=== PATIENT | female | born 1940 | race African-American/Black ===

== ENCOUNTER 2017-12-25 05:19 | Observation (INO) | payer OTHER, MEDICAID ==
[~2017-12-25] VITALS: Ht 162.6 cm; Wt 74.6 kg
[2017-12-25] MEDS ORDERED: SODIUM CHLORIDE 0.9% 500 ML IV ONE (06:13)
[2017-12-25 07:07] LABS: BASOPHILS % 0.8 % (0.0-2.0); EOSINOPHILS % 3.7 % (0.0-5.0); HEMATOCRIT. 37.7 % (36.0-48.0); HEMOGLOBIN. 12.4 g/dL (12.0-16.0); LYMPHOCYTES % 26.5 % (20.0-50.0); MEAN CORPUSCULAR HEMOGLOBIN 29.3 pg (28.0-32.0); MEAN CORPUSCULAR VOLUME 88.9 fL (81.0-99.0); MEAN PLATELET VOLUME 10.3 fl (7.4-10.4); MONOCYTES % 9.4 % (2.0-8.0); NEUTROPHILS % 59.6 % (40.0-76.0); PLATELET 179 x1000/uL (130-400); RED BLOOD CELL COUNT 4.24 mill/uL (4.2-5.4); RED CELL DISTRIBUTION WIDTH 16.4 % (11.6-14.6)
[2017-12-25 07:11] LABS: CHLORIDE 109 mEq/L (98-107)
[2017-12-25 07:13] LABS: PROTHROMBIN TIME 9.8 sec (9.1-11.1)
[2017-12-25 07:32] LABS: CLARITY URINE CLEAR (CLEAR); COLOR URINE YELLOW (YELLOW); KETONES URINE NEGATIVE (NEGATIVE); LEUKOCYTE ESTERASE URINE 1+ (NEGATIVE); NITRITE URINE POSITIVE (NEGATIVE); OCCULT BLOOD URINE NEGATIVE (NEGATIVE); PROTEIN URINE NEGATIVE (NEGATIVE); SPECIFIC GRAVITY URINE 1.016 (1.005-1.030); UROBILINOGEN URINE 0.2 E.U./dL (0.2-1.0)
[2017-12-25] MEDS ORDERED: HYDRALAZINE 20MG/ML VIAL IV ONE (09:15)
[2017-12-25] MEDS ORDERED: ASPIRIN 300MG SUPP PR ONE (10:15)
[2017-12-25] MEDS ORDERED: CEFTRIAXONE 1 G PREMIX 50 ML IV ONE (10:15)
[2017-12-25 12:00] VITALS: BP 176/78
[2017-12-25 14:00] VITALS: BP 176/78
[2017-12-25] MEDS ORDERED: HYDRALAZINE 20MG/ML VIAL IV PRN (15:44)
[2017-12-25] MEDS ORDERED: LEVOFLOXACIN 500MG TABLET PO SCH (15:46)
[2017-12-25 16:00] VITALS: BP 149/85
[2017-12-25] MEDS ORDERED: SODIUM CHLORIDE 0.45% 1,000 ML IV SCH (16:00)
[2017-12-25 16:47] VITALS: BP 149/85
[2017-12-25] MEDS ORDERED: PNEUMOCOCCAL 23-VAL P-SAC VAC 0.5 ML IM ONE (17:00)
== END 2017-12-25 18:32 ==
LOC: ER 05:19 → 6WST 10:16 → INTOOBSV 10:16 → SUPCPDRO 10:27 → ENRESERV 10:41
PROVIDERS: ADMIT Internal Medicine; ATTEND Internal Medicine
DX: R53.1 Weakness (principal); R55 Syncope and collapse; I63.9 Cerebral infarction, unspecified; G81.94 Hemiplegia, unspecified affecting left nondominant side; E11.9 Type 2 diabetes mellitus without complications; E86.0 Dehydration; E66.9 Obesity, unspecified; I10 Essential (primary) hypertension; N39.0 Urinary tract infection, site not specified; R00.1 Bradycardia, unspecified; F03.90 Unspecified dementia, unspecified severity, without behavioral disturbance, psychotic disturbance, mood disturbance, and anxiety; Z91.19 Patient's noncompliance with other medical treatment and regimen
CPT/HCPCS: 36415; 51702; 70450; 71045; 80053; 81003; 83880; 84484; 85025; 85610; 92610; 93005; 96361; 96365; 96375; 96376; 99285; G0378; J0360; J0696; J7030

== ENCOUNTER 2019-03-16 12:37 | Inpatient (IN) | payer MEDICARE, MEDICAID ==
[~2019-03-16] VITALS: Ht 160 cm; Wt 73.5 kg
[2019-03-16] MEDS ORDERED: LABETALOL 5MG/ML SYR 20 MG/4 ML SYRINGE IV ONE ×2 (16:15→19:45)
[2019-03-16 16:37] LABS: BASOPHILS % 0.6 % (0.0-2.0); EOSINOPHILS % 5.8 % (0.0-5.0); HEMATOCRIT. 38.5 % (36.0-48.0); HEMOGLOBIN. 12.8 g/dL (12.0-16.0); MEAN CORPUSCULAR HEMOGLOBIN 29.2 pg (28.0-32.0); MEAN CORPUSCULAR VOLUME 88.3 fL (81.0-99.0); MEAN PLATELET VOLUME 10.5 fl (7.4-10.4); MONOCYTES % 6.9 % (2.0-8.0); NEUTROPHILS % 56.7 % (40.0-76.0); PLATELET 171 x1000/uL (130-400); RED BLOOD CELL COUNT 4.37 mill/uL (4.2-5.4); RED CELL DISTRIBUTION WIDTH 16.2 % (11.6-14.6)
[2019-03-16 16:43] LABS: CHLORIDE 109 mEq/L (98-107)
[2019-03-16] MEDS ORDERED: CLOTRIMAZOLE 1% SOLUTION 10ML TOP ONE (19:15)
[2019-03-16] MEDS ORDERED: HYDRALAZINE 20MG/ML VIAL IV NR (21:30)
[2019-03-16] MEDS ORDERED: CLONIDINE 0.2MG TABLET PO SCH ×2 (23:15→23:30)
[2019-03-17] VITALS (84 sets, daily range): BP systolic 104–259; BP diastolic 61–140
[2019-03-17] MEDS ORDERED: NITROGLYCERIN 50MG PREMIX 250 ML IV SCH (01:00)
[2019-03-17] MEDS ORDERED: DEXTROSE 50% WATER 50ML SYRINGE IV PRN ×2 (03:00)
[2019-03-17] MEDS ORDERED: DEXT 5%/0.9% NACL 1,000 ML IV SCH (03:00)
[2019-03-17] MEDS ORDERED: NITROGLYCERIN 50MG PREMIX 250 ML IV PRN (03:00)
[2019-03-17 06:00] LABS: HEMATOCRIT 38.4 % (36.0-48.0); HEMOGLOBIN 12.8 g/dL (12.0-16.0); MEAN CORPUSCULAR HEMOGLOBIN 29.3 pg (28.0-32.0); MEAN CORPUSCULAR VOLUME 88.1 fL (81.0-99.0); PLATELET 186 x1000/uL (130-400); RED BLOOD CELL COUNT 4.36 mill/uL (4.2-5.4)
[2019-03-17] MEDS: BLOOD SUGAR DIAGNOSTIC STRIP TEST SCH ×3 (06:11→18:54)
[2019-03-17 06:12] LABS: CHLORIDE 107 mEq/L (98-107)
[2019-03-17 06:20] LABS: LDL CHOLESTEROL 98 mg/dL (5-100)
[2019-03-17 06:22] LABS: HDL CHOLESTEROL 51 mg/dL (40-59)
[2019-03-17] MEDS: INSULIN LISPRO 100 UNITS/ML SUBCUT SCH ×3 (06:39→18:54)
[2019-03-17] MEDS ORDERED: NICARDIPINE 50 MG in SODIUM CHLORIDE 0.9% 230 ML IV PRN (09:00)
[2019-03-17] MEDS: PANTOPRAZOLE SODIUM 40 MG/VIAL IV SCH (09:19)
[2019-03-17] MEDS ORDERED: POTASSIUM CHLORIDE INJ 40 MEQ in DEXT 5% WATER 250 ML IV NR (11:00)
[2019-03-17] MEDS ORDERED: DILTIAZEM HCL 5MG/ML 5ML VIAL IV NR (12:30)
[2019-03-17 12:44] LABS: BG BASE EXCESS 1.6 mmol/L (-2.0-2.0); BG DEOXYHEMOGLOBIN 6.9 % (0.0-5.0); BG HCO3 ACT 25.2 mmol/L (22.0-26.0); BG METHEMOGLOBIN 0.4 % (0.0-1.5); BG OXYGEN SATURATION 93.1 % (92.0-98.5); BG OXYHEMOGLOBIN 92.7 % (94.0-97.0); BG PCO2 36.3 mmHg (35.0-45.0); BG PH 7.459 (7.350-7.450); BG PO2 66.7 mmHg (75.0-100.0); BG SAMPLE SITE RIGHT RADIAL; BG TOTAL HEMOGLOBIN 13.4 g/dL (12.0-18.0); BG VENT MODE ROOM AIR
[2019-03-17 13:36] LABS: PROTHROMBIN TIME 10.7 sec (9.6-11.0)
[2019-03-17] MEDS ORDERED: CLONIDINE 0.1MG TABLET PO PRN (14:00)
[2019-03-17] MEDS ORDERED: CLONIDINE 0.1MG TABLET PO SCH (14:00)
[2019-03-17] MEDS: ASPIRIN 81MG TABLET PO SCH (14:13)
[2019-03-17] MEDS ORDERED: DILTIAZEM HCL 30MG TABLET PO SCH (18:00)
[2019-03-17] MEDS: CLOTRIMAZOLE 1% CREAM 30GM TOP SCH ×2 (18:33→21:21)
[2019-03-17] MEDS: DILTIAZEM HCL 30MG TABLET PO SCH (18:35)
[2019-03-17] MEDS ORDERED: ATOR40TA70 MT (19:36)
[2019-03-17] MEDS ORDERED: CHOL400T MT (19:36)
[2019-03-17] MEDS ORDERED: COR3 PO (19:36)
[2019-03-17] MEDS ORDERED: ASPI-1393 PO (19:36)
[2019-03-17] MEDS ORDERED: OXYB5TAB11 PO (19:36)
[2019-03-17] MEDS ORDERED: GLIP5TAB12 PO (19:36)
[2019-03-17] MEDS ORDERED: CLON-457 MT (19:36)
[2019-03-17] MEDS ORDERED: CITA10SO PO (19:36)
[2019-03-17] MEDS ORDERED: METF-414 PO (19:36)
[2019-03-17] MEDS ORDERED: MYCOC15 TP (19:36)
[2019-03-17] MEDS ORDERED: CLONIDINE 0.2MG TABLET PO PRN (20:30)
[2019-03-17] MEDS: ATORVASTATIN CALCIUM 40MG TABLET PO SCH (21:20)
[2019-03-17] MEDS: NYSTATIN POWDER 15GM TOP SCH (21:21)
[2019-03-17 22:50] LABS: CLARITY URINE CLEAR (CLEAR); COLOR URINE YELLOW (YELLOW); KETONES URINE NEGATIVE (NEGATIVE); LEUKOCYTE ESTERASE URINE 2+ (NEGATIVE); NITRITE URINE NEGATIVE (NEGATIVE); OCCULT BLOOD URINE 2+ (NEGATIVE); PROTEIN URINE TRACE (NEGATIVE); UROBILINOGEN URINE 0.2 E.U./dL (0.2-1.0)
[2019-03-17 23:07] LABS: *AMPHETAMINES SCREEN URINE NEGATIVE (NEGATIVE)
[2019-03-17 23:08] LABS: *BARBITURATES SCREEN URINE NEGATIVE (NEGATIVE); *BENZODIAZEPINES SCREEN URINE NEGATIVE (NEGATIVE); *COCAINE SCREEN URINE NEGATIVE (NEGATIVE); METHADONE URINE SCREEN NEGATIVE (NEGATIVE); OPIATES URINE SCREEN NEGATIVE (NEGATIVE); PHENCYCLIDINE URINE SCREEN NEGATIVE (NEGATIVE)
[2019-03-17 23:10] LABS: CANNABINOID URINE SCREEN NEGATIVE (NEGATIVE)
[2019-03-18] VITALS (19 sets, daily range): BP systolic 103–193; BP diastolic 59–111
[2019-03-18] MEDS: BLOOD SUGAR DIAGNOSTIC STRIP TEST SCH ×4 (00:01→17:26)
[2019-03-18] MEDS: INSULIN LISPRO 100 UNITS/ML SUBCUT SCH ×4 (06:00→17:26)
[2019-03-18] MEDS: DILTIAZEM HCL 30MG TABLET PO SCH ×2 (06:00→17:35)
[2019-03-18 06:42] LABS: CHLORIDE 109 mEq/L (98-107)
[2019-03-18 06:50] LABS: PHOSPHORUS 2.6 mg/dL (2.5-4.9)
[2019-03-18 06:54] LABS: T4 FREE 1.08 ng/dL (0.76-1.46)
[2019-03-18 07:23] LABS: BASOPHILS % 0.6 % (0.0-2.0); EOSINOPHILS % 2.3 % (0.0-5.0); HEMATOCRIT. 37.1 % (36.0-48.0); HEMOGLOBIN. 12.2 g/dL (12.0-16.0); LYMPHOCYTES % 23.7 % (20.0-50.0); MEAN CORPUSCULAR HEMOGLOBIN 29.1 pg (28.0-32.0); MEAN CORPUSCULAR VOLUME 88.7 fL (81.0-99.0); MEAN PLATELET VOLUME 11.1 fl (7.4-10.4); MONOCYTES % 10.6 % (2.0-8.0); NEUTROPHILS % 62.8 % (40.0-76.0); PLATELET 169 x1000/uL (130-400); RED BLOOD CELL COUNT 4.19 mill/uL (4.2-5.4); RED CELL DISTRIBUTION WIDTH 16.1 % (11.6-14.6)
[2019-03-18] MEDS: CLOTRIMAZOLE 1% CREAM 30GM TOP SCH ×2 (08:42→20:55)
[2019-03-18] MEDS: NYSTATIN POWDER 15GM TOP SCH ×3 (08:42→17:36)
[2019-03-18] MEDS: ASPIRIN 81MG TABLET PO SCH (08:42)
[2019-03-18] MEDS: PANTOPRAZOLE SODIUM 40 MG/VIAL IV SCH (08:42)
[2019-03-18] MEDS: CEFTRIAXONE 1 G PREMIX 50 ML IV SCH (15:21)
[2019-03-18] MEDS: HYDRALAZINE 20MG/ML VIAL IV PRN ×2 (15:31→21:37)
[2019-03-18] MEDS: ENOXAPARIN 40MG/0.4ML SYR SUBCUT SCH (17:35)
[2019-03-18] MEDS ORDERED: MAGNESIUM 1 G PREMIX 100 ML IV NR (18:30)
[2019-03-18] MEDS: ATORVASTATIN CALCIUM 40MG TABLET PO SCH (21:00)
[2019-03-18] MEDS: HYDRALAZINE HCL 50MG TABLET PO SCH (21:00)
[2019-03-18] MEDS ORDERED: DILTIAZEM HCL 5MG/ML 5ML VIAL IV NR (23:30)
[2019-03-18] MEDS ORDERED: DILTIAZEM HCL 5MG/ML 5ML VIAL IV PRN (23:30)
[2019-03-19] VITALS (17 sets, daily range): BP systolic 86–202; BP diastolic 55–111
[2019-03-19] MEDS: BLOOD SUGAR DIAGNOSTIC STRIP TEST SCH ×4 (00:42→17:32)
[2019-03-19] MEDS: DILTIAZEM HCL 30MG TABLET PO SCH (05:48)
[2019-03-19] MEDS: DILTIAZEM HCL 5MG/ML 5ML VIAL IV SCH ×3 (05:48→17:44)
[2019-03-19] MEDS: INSULIN LISPRO 100 UNITS/ML SUBCUT SCH ×4 (05:58→17:33)
[2019-03-19 07:17] LABS: CHLORIDE 111 mEq/L (98-107)
[2019-03-19 07:18] LABS: HEMATOCRIT 42.4 % (36.0-48.0); HEMOGLOBIN 14.1 g/dL (12.0-16.0); MEAN CORPUSCULAR HEMOGLOBIN 29.5 pg (28.0-32.0); MEAN CORPUSCULAR VOLUME 88.5 fL (81.0-99.0); PLATELET 196 x1000/uL (130-400); RED BLOOD CELL COUNT 4.79 mill/uL (4.2-5.4); RED CELL DISTRIBUTION WIDTH 16.4 % (11.6-14.6)
[2019-03-19] MEDS: HYDRALAZINE HCL 50MG TABLET PO SCH ×2 (09:00→20:40)
[2019-03-19] MEDS: ASPIRIN 81MG TABLET PO SCH (09:18)
[2019-03-19] MEDS: PANTOPRAZOLE SODIUM 40 MG/VIAL IV SCH (09:19)
[2019-03-19] MEDS: CLOTRIMAZOLE 1% CREAM 30GM TOP SCH ×2 (09:24→20:36)
[2019-03-19] MEDS: NYSTATIN POWDER 15GM TOP SCH ×3 (10:00→18:38)
[2019-03-19] MEDS: HYDRALAZINE 20MG/ML VIAL IV PRN (10:32)
[2019-03-19] MEDS ORDERED: POTASSIUM CHLORIDE 20MEQ TABLET SR PO SCH (11:00)
[2019-03-19] MEDS ORDERED: KCL 20MEQ/100ML PREMIX 100 ML IV SCH (12:30)
[2019-03-19] MEDS: CEFTRIAXONE 1 G PREMIX 50 ML IV SCH (15:04)
[2019-03-19] MEDS: ENOXAPARIN 40MG/0.4ML SYR SUBCUT SCH (17:42)
[2019-03-19] MEDS: ATORVASTATIN CALCIUM 40MG TABLET PO SCH (20:35)
[2019-03-20] VITALS (14 sets, daily range): BP systolic 134–195; BP diastolic 75–140
[2019-03-20] MEDS: BLOOD SUGAR DIAGNOSTIC STRIP TEST SCH ×5 (00:16→23:50)
[2019-03-20] MEDS: DILTIAZEM HCL 5MG/ML 5ML VIAL IV SCH ×2 (00:20→05:02)
[2019-03-20] MEDS: INSULIN LISPRO 100 UNITS/ML SUBCUT SCH ×5 (05:02→23:50)
[2019-03-20 06:23] LABS: HEMATOCRIT 44.1 % (36.0-48.0); HEMOGLOBIN 14.4 g/dL (12.0-16.0); MEAN CORPUSCULAR VOLUME 89.1 fL (81.0-99.0); PLATELET 196 x1000/uL (130-400); RED BLOOD CELL COUNT 4.96 mill/uL (4.2-5.4); RED CELL DISTRIBUTION WIDTH 16.5 % (11.6-14.6)
[2019-03-20 06:26] LABS: CHLORIDE 112 mEq/L (98-107)
[2019-03-20] MEDS: FAMOTIDINE 20MG TABLET PO SCH (08:19)
[2019-03-20] MEDS: NYSTATIN POWDER 15GM TOP SCH ×3 (08:20→18:47)
[2019-03-20] MEDS: ASPIRIN 81MG TABLET PO SCH (08:20)
[2019-03-20] MEDS: CLOTRIMAZOLE 1% CREAM 30GM TOP SCH ×2 (08:21→20:20)
[2019-03-20] MEDS: HYDRALAZINE HCL 50MG TABLET PO SCH (08:28)
[2019-03-20] MEDS ORDERED: HYDRALAZINE HCL 50MG TABLET PO NR (10:45)
[2019-03-20] MEDS: DILTIAZEM HCL 30MG TABLET PO SCH ×2 (11:10→18:48)
[2019-03-20] MEDS: HYDRALAZINE 20MG/ML VIAL IV PRN ×2 (12:07→20:17)
[2019-03-20] MEDS: CEFTRIAXONE 1 G PREMIX 50 ML IV SCH (14:49)
[2019-03-20] MEDS ORDERED: ASPI-986 PO (14:59)
[2019-03-20] MEDS ORDERED: HYDR100T26 MT (14:59)
[2019-03-20] MEDS ORDERED: DILT60TA35 MT (14:59)
[2019-03-20] MEDS ORDERED: CIPR-263 MT (14:59)
[2019-03-20] MEDS ORDERED: CLONIDINE 0.1MG TABLET PO PRN (15:00)
[2019-03-20] MEDS ORDERED: CLONIDINE 0.1MG TABLET PO NR (15:00)
[2019-03-20] MEDS ORDERED: BUTE12CR2 TP (15:01)
[2019-03-20] MEDS: HYDRALAZINE HCL 50MG TABLET PO NR ×2 (15:33→15:41)
[2019-03-20] MEDS ORDERED: NITROGLYCERIN OINT 1GM/INCH UDPKT TD NR (16:00)
[2019-03-20] MEDS ORDERED: HYDRALAZINE 20MG/ML VIAL IV NR (16:00)
[2019-03-20] MEDS: DILTIAZEM HCL 5MG/ML 5ML VIAL IV PRN ×2 (17:16→17:35)
[2019-03-20] MEDS: ENOXAPARIN 40MG/0.4ML SYR SUBCUT SCH (18:48)
[2019-03-20] MEDS: ATORVASTATIN CALCIUM 40MG TABLET PO SCH (20:19)
[2019-03-20] MEDS: HYDRALAZINE HCL 100MG TABLET PO SCH (20:19)
[2019-03-21] VITALS: BP 174/97
[2019-03-21 04:00] VITALS: BP 175/94
[2019-03-21] MEDS: INSULIN LISPRO 100 UNITS/ML SUBCUT SCH ×2 (05:55→12:00)
[2019-03-21] MEDS: BLOOD SUGAR DIAGNOSTIC STRIP TEST SCH ×2 (05:55→12:00)
[2019-03-21] MEDS: DILTIAZEM HCL 30MG TABLET PO SCH ×3 (06:00→13:27)
[2019-03-21] MEDS: HYDRALAZINE 20MG/ML VIAL IV PRN (06:04)
[2019-03-21 06:55] LABS: HEMATOCRIT 43.2 % (36.0-48.0); HEMOGLOBIN 14.3 g/dL (12.0-16.0); MEAN CORPUSCULAR HEMOGLOBIN 29.2 pg (28.0-32.0); MEAN CORPUSCULAR VOLUME 88.4 fL (81.0-99.0); PLATELET 215 x1000/uL (130-400); RED BLOOD CELL COUNT 4.89 mill/uL (4.2-5.4); RED CELL DISTRIBUTION WIDTH 16.4 % (11.6-14.6)
[2019-03-21 07:14] LABS: CHLORIDE 114 mEq/L (98-107)
[2019-03-21 08:00] VITALS: BP 185/99
[2019-03-21] MEDS: HYDRALAZINE HCL 100MG TABLET PO SCH ×2 (08:45→09:00)
[2019-03-21] MEDS: FAMOTIDINE 20MG TABLET PO SCH ×2 (08:45→09:00)
[2019-03-21] MEDS: ASPIRIN 81MG TABLET PO SCH ×2 (08:45→09:00)
[2019-03-21] MEDS: CLOTRIMAZOLE 1% CREAM 30GM TOP SCH (08:46)
[2019-03-21] MEDS: NYSTATIN POWDER 15GM TOP SCH ×2 (08:46→13:09)
[2019-03-21 12:00] VITALS: BP 160/78
[2019-03-21] MEDS ORDERED: PIPERACILLIN/TAZOBACTAM 3.375 G in DEXT 5% WATER 100 ML IV SCH (14:00)
[2019-03-21 14:51] VITALS: BP 160/78
== END 2019-03-21 16:55 | disposition home health service (06) | DRG 64 ==
LOC: ER 12:37 → CVICU 18:39 → EDBEDREQ 18:44 → EDBEDREQTM 18:44 → ENRESERV 21:09 → CANRESERV 21:09 → EDBEDREQSVC 03-17 00:42 → EDBEDREQTM 03-17 00:42 → EDBEDREQDT 03-17 00:42 → ENRESERV 03-17 01:18 → 3WST 03-18 00:42 → 7WST 03-20 22:16
PROVIDERS: ADMIT Internal Medicine; ATTEND Internal Medicine
DX: I63.81 Other cerebral infarction due to occlusion or stenosis of small artery (principal); G92 Toxic encephalopathy; D68.59 Other primary thrombophilia; I69.354 Hemiplegia and hemiparesis following cerebral infarction affecting left non-dominant side; N39.0 Urinary tract infection, site not specified; I16.0 Hypertensive urgency; F01.50 Vascular dementia, unspecified severity, without behavioral disturbance, psychotic disturbance, mood disturbance, and anxiety; E87.6 Hypokalemia; E86.0 Dehydration; I11.9 Hypertensive heart disease without heart failure; E11.65 Type 2 diabetes mellitus with hyperglycemia; B36.9 Superficial mycosis, unspecified; L89.90 Pressure ulcer of unspecified site, unspecified stage; E83.42 Hypomagnesemia; B96.5 Pseudomonas (aeruginosa) (mallei) (pseudomallei) as the cause of diseases classified elsewhere; R26.9 Unspecified abnormalities of gait and mobility; Z88.8 Allergy status to other drugs, medicaments and biological substances
CPT/HCPCS: 36415; 36600; 70551; 71045; 80048; 80061; 80305; 81003; 82375; 82805; 82962; 83036; 83735; 83880; 84100; 84439; 84443; 84484; 85027; 87077; 87186; 92610; 93005; 93306; 93880; 93970; 96374; 97112; 97163; 97167; 97530; 99291; A6261; C1893; C9113; J0360; J0696; J1650; J1815; J2543; J3475; J3480; J3490; J7042; J7050; J7060; A4315